=== PATIENT | male | born 1975 | race African-American/Black ===

== ENCOUNTER 2017-11-29 14:04 | Outpatient (CLI) | payer OTHER ==
--- NOTE | 2017-11-29 16:49 | MRI ---
MRI OF THE LEFT WRIST WITHOUT CONTRAST: INDICATION: Persistent left wrist pain after an injury at work. The patient has had persistent ulnar-sided left wrist pain after a forklift fell on the patient's left wrist. TECHNIQUE: Multiplanar, multisequence MR images were obtained in the left wrist without IV contrast. Comparison s are made with radiographs of the left wrist dated 06/10/17 and 10/24/17. FINDINGS: No acute fracture is evident. Motion artifact limits image detail of the intrinsic wrist ligament; h owever, the scapholunate and triquetral ligaments are felt to be intact. Visualized aspects of the T FC appear intact. The visualized extensor tendons appear intact. A small amount of fluid is seen in volving the 1st dorsal compartment. The carpal tunnel and its contents appear within normal limits. The FCR and FCU tendons are normal-appearing. Visualized aspects of the extrinsic ligaments of the wrist appear intact. No bone marrow signal abnormality is grossly evident. IMPRESSION: 1. Small amount of fluid surrounding the adductor pollicis longus and extensor pollicis brevis tendo ns within the first dorsal compartment consistent with changes of mild de Quervain's tenosynovitis. Recommend correlation with clinical examination. The remaining extensor tendons appear within normal limits. 2. Some motion artifact slightly limits image detail of the wrist. POS: OFF
== END 2017-11-29 14:05 | disposition home or self-care (01) ==
LOC: SCSMRI 14:04
PROVIDERS: ATTEND Family Medicine
DX: S66.912D Strain of unspecified muscle, fascia and tendon at wrist and hand level, left hand, subsequent encounter (principal); M77.8 Other enthesopathies, not elsewhere classified

== ENCOUNTER 2018-09-14 13:26 | Emergency (ER) | payer SELFPAY ==
--- NOTE | 2018-09-14 14:00 | RAD ---
FRONTAL VIEW CHEST: Indication: Chest pain. Comparison: 08-03-16 FINDINGS: There is no evidence of consolidation, effusion, or discrete pneumothorax. Cardiac silhouette is stab le. IMPRESSION: Stable chest. POS: [facility]
[2018-09-14 14:01] LABS: #Basophils 0.1 thou/uL (0.0-0.2); #Eosinphils 0.1 thou/uL (0.0-0.7); #Lymphocytes 1.4 thou/uL (1.20-3.40); #Monocytes 0.4 thou/uL (0.11-0.59); #Neutrophils 2.9 thou/uL (1.40-6.50); %Basophils 1.5 % (0.0-1.0); %Eosinophils 2.9 % (0.0-10.0); %Lymphocytes 29.1 % (21.0-51.0); %Monocytes 7.3 % (0.0-10.0); %Neutrophils 59.2 % (42.0-75.0); Band 1 % (5-11); Eosinophils 1 % (0-10); Hemoglobin 13.6 g/dL (14.0-18.0); Large Platelets SLIGHT; Lymphocytes 28 % (21-51); MDiff Complete? YES; Mean Corpuscular HGB CONC 33.4 g/dL (32.0-36.0); Mean Corpuscular Hemoglobin 26.9 pg (27.0-31.0); Mean Corpuscular Volume 80.5 fL (78.0-98.0); Mean Platelet Volume 13.9 fL (7.4-10.4); Monocytes 3 % (0-10); Neutrophil 67 % (42-75); PLT Morphology Comment Appears Adequate; Platelet Count 132 thou/uL (130-400); RBC Distribution Width 12.2 % (11.5-14.5); Red Blood Cell (RBC) Count 5.07 mill/uL (4.70-6.10); White Blood Cell (WBC) Count 4.9 thou/uL (4.8-10.8)
[2018-09-14 14:04] LABS: ALT (SGPT) 47 U/L (8-55); AST (SGOT) 27 U/L (5-34); Albumin 4.2 g/dL (3.5-5.0); Alkaline Phosphatase 83 U/L (40-150); Anion Gap 14 mmol/L (10-20); BUN (Urea Nitrogen) 12 mg/dL (8.9-20.6); Bilirubin, Total 0.7 mg/dL (0.2-1.2); CK (CPK) 392 U/L (30-200); Calc. Creatinine Clearance 0 mL/min (70-130); Calcium 9.7 mg/dL (7.8-10.44); Carbon Dioxide 27 mmol/L (22-29); Chloride 100 mmol/L (98-107); Estimated GFR-MDRD 90; Globulin 3.6 g/dL (2.4-3.5); Glucose 122 mg/dL (70-105); Potassium 3.6 mmol/L (3.5-5.1); Protein, Total 7.8 g/dL (6.0-8.3); Sodium 137 mmol/L (136-145)
[2018-09-14 14:05] LABS: CKMB 4.5 ng/mL (0-6.6); Troponin I Less than 0.010 ng/mL (< 0.028)
== END 2018-09-14 14:26 | disposition home or self-care (01) ==
LOC: SCSER 13:26
DX: R07.89 Other chest pain (principal); E78.5 Hyperlipidemia, unspecified; I10 Essential (primary) hypertension; F17.210 Nicotine dependence, cigarettes, uncomplicated; Z79.899 Other long term (current) drug therapy
CPT/HCPCS: 71045; 80053; 82550; 82553; 84484; 85025; 93005; 94760

== ENCOUNTER 2019-06-16 12:38 | Emergency (ER) | payer SELFPAY | END 2019-06-16 13:06 | disposition home or self-care (01) | LOC: SCSER 12:38 | DX: M54.6 Pain in thoracic spine (principal); E78.5 Hyperlipidemia, unspecified; I10 Essential (primary) hypertension; G43.909 Migraine, unspecified, not intractable, without status migrainosus; F17.210 Nicotine dependence, cigarettes, uncomplicated; Z79.899 Other long term (current) drug therapy | CPT/HCPCS: 99283 ==

== ENCOUNTER 2019-08-15 17:55 | Emergency (ER) | payer SELFPAY ==
[~2019-08-15 17:55] MED LIST: Iopamidol 370 76% 100 ML VIAL ONE
[2019-08-15] MEDS ORDERED: Ondansetron PF 4 MG/2 ML Vial ONE (18:42)
[2019-08-15] MEDS ORDERED: Morphine 4 MG/ML VIAL ONE (18:42)
--- NOTE | 2019-08-15 18:55 | RAD ---
XR Chest 1 View Portable History: Chest pain Comparison: Radiograph September 2018 Findings: Lungs are clear. No pneumothorax or effusion. Cardiac silhouette and mediastinal contours a re within normal limits. Impression: No acute intrathoracic abnormality.
[2019-08-15 19:09] LABS: Hemoglobin 13.3 g/dL (14.0-18.0); Mean Corpuscular HGB CONC 34.8 g/dL (32.0-36.0); Mean Corpuscular Hemoglobin 28.3 pg (27.0-31.0); Mean Corpuscular Volume 81.3 fL (78.0-98.0); Mean Platelet Volume 13.2 fL (7.4-10.4); Platelet Count 146 thou/uL (130-400); RBC Distribution Width 12.6 % (11.5-14.5); White Blood Cell (WBC) Count 5.6 thou/uL (4.8-10.8)
--- NOTE | 2019-08-15 19:13 | CT ---
CT Aortic Dissection Protocol History: Chest pain Comparison: Chest radiograph same day Findings: CT angiogram of the chest and abdomen performed after the intravenous administration of con trast. 3-D rendering provided. There is no proximal segmental pulmonary arterial filling defect. No pericardial effusion. Heart size is normal. No aortic aneurysm, dissection, nor penetrating atherosclerotic ulcer. No mediastinal adenopathy. No effusion or pneumothorax. No lung consolidation. Pancreas, spleen, adrenal glands are unremarkable. Cervical 2 small characterize exophytic hypodensit y interpolar left kidney. No hydronephrosis. Celiac trunk and superior mesenteric arteries are patent. No dilated loops of large or small bowel. The appendix is visualized and is normal. No ventral hernia. No acute osseous abnormality. Impression: No aortic dissection. Normal examination.
[2019-08-15 19:15] LABS: ALT (SGPT) 41 U/L (8-55); AST (SGOT) 25 U/L (5-34); Albumin 3.9 g/dL (3.5-5.0); Alkaline Phosphatase 84 U/L (40-110); Anion Gap 13 mmol/L (10-20); BUN (Urea Nitrogen) 11 mg/dL (8.9-20.6); Bilirubin, Total 0.6 mg/dL (0.2-1.2); Calc. Creatinine Clearance 0 mL/min (70-130); Carbon Dioxide 26 mmol/L (22-29); Chloride 104 mmol/L (98-107); Estimated GFR-MDRD Greater than 90; Globulin 3.2 g/dL (2.4-3.5); Glucose 102 mg/dL (70-105); Lipase 29 U/L (8-78); Potassium 3.2 mmol/L (3.5-5.1); Protein, Total 7.1 g/dL (6.0-8.3); Sodium 140 mmol/L (136-145)
[2019-08-15 19:21] LABS: #Basophils 0.1 thou/uL (0.0-0.2); #Eosinphils 0.2 thou/uL (0.0-0.7); #Lymphocytes 1.8 thou/uL (1.20-3.40); #Monocytes 0.4 thou/uL (0.11-0.59); %Basophils 1.6 % (0.0-1.0); %Eosinophils 3.1 % (0.0-10.0); %Lymphocytes 32.8 % (21.0-51.0); %Monocytes 7.7 % (0.0-10.0); %Neutrophils 54.7 % (42.0-75.0); Large Platelets SLIGHT; MDiff Complete? YES; Platelet Morphology Comment Appears Adequate; Stomatocytes SLIGHT = 2-5 cells (100X) (0-1/hpf)
[2019-08-15] MEDS ORDERED: Ketorolac Tromethamine 30 MG/ML VIAL ONE (20:13)
== END 2019-08-15 20:20 | disposition home or self-care (01) ==
LOC: SCSER 17:55
DX: M54.6 Pain in thoracic spine (principal); E78.5 Hyperlipidemia, unspecified; E78.00 Pure hypercholesterolemia, unspecified; I10 Essential (primary) hypertension; G43.909 Migraine, unspecified, not intractable, without status migrainosus; F17.210 Nicotine dependence, cigarettes, uncomplicated; Z79.899 Other long term (current) drug therapy
CPT/HCPCS: 71045; 71275; 72191; 74175; 80053; 83690; 84484; 85025; 93005; 96361; 96374; 96375; J1885; J2270; J2405; Q9967

== ENCOUNTER 2020-11-14 07:37 | Outpatient (CLI) | payer OTHER ==
--- NOTE | 2020-11-14 09:06 | MRI ---
EXAM: MRI right elbow PROVIDED CLINICAL HISTORY: Right elbow pain status post injury COMPARISON: None FINDINGS: The biceps, brachialis and triceps tendon insertions appear normal. The common extensor and common flexor tendon origins appear normal. The medial and lateral elbow ligaments appear intact. No articular cartilage abnormality is evident. The amount of fluid within the elbow joint appears phy siologic. Alignment appears anatomic. No focal concerning regional marrow or muscular signal abnormality is evident. The courses of the reg ional major neurovascular structures appear unremarkable. IMPRESSION: No evidence for internal derangement.
== END 2020-11-14 07:38 | disposition home or self-care (01) ==
LOC: BICMRI 07:37
PROVIDERS: ATTEND Family Medicine
DX: S59.901D Unspecified injury of right elbow, subsequent encounter (principal)